=== PATIENT | male | born 1995 | race Two or more races ===

== ENCOUNTER 2016-11-30 22:42 | Emergency (ER) | payer SELFPAY ==
[2016-11-30 22:51] VITALS: BP 130/73; PULSE 64; TEMP 97.7; BMI 25.9
--- NOTE | 2016-12-01 00:32 | PDOC ---
History of Present Illness - General Chief Complaint: Penile Drainage Stated Complaint: STOMACH PAIN Time Seen by Provider: 11/30/16 23:04 History Source: Patient Exam Limitations: No Limitations - History of Present Illness Travel History: No Initial Comments: 12/01/16 01:17 21-year-old male without any medical history presents to the emergency department complaining of burning upon urination 3 weeks without fever, chills , nausea/vomiting, chest pain, shortness of breath, abdominal pains, flank pain , hematuria, urgency/frequency in urination. There are no alleviating or exacerbating factors. Patient states he is sexually active with one woman for the past 3 months. Prior to that he has been in an exclusive relationship with one woman for 3 years. No history of STDs. Timing/Duration: reports: intermittent Quality: reports: mild Past History - Past Medical History Home Medications: Ambulatory Orders NK [No Known Home Medication] 11/30/16 - Suicide/Smoking/Psychosocial Hx Smoking History: Current every day smoker Have you smoked in the past 12 months: Yes Number of Cigarettes Smoked Daily: 10 Information on smoking cessation initiated: No Hx Alcohol Use: No Drug/Substance Use Hx: No Substance Use Type: None Review of Systems - Review of Systems Able to Perform ROS?: Yes Comments:: 12/01/16 01:18 CONSTITUTIONAL: Absent: fever, chills, diaphoresis, generalized weakness, malaise, loss of appetite HEENT: Absent: rhinorrhea, nasal congestion, throat pain, throat swelling, difficulty swallowing, mouth swelling, ear pain, eye pain, visual Changes CARDIOVASCULAR: Absent: chest pain, loss of consciousness, palpitations, irregular heart rate, peripheral edema RESPIRATORY: Absent: cough, shortness of breath, dyspnea with exertion, orthopnea, wheezing, stridor, hemoptysis GASTROINTESTINAL: Absent: abdominal pain, abdominal distension, nausea, vomiting, diarrhea, constipation, melena, hematochezia GENITOURINARY: +burn upon urination Absent: dysuria, frequency, urgency, hesitancy, hematuria, flank pain, genital pain MUSCULOSKELETAL: Absent: myalgia, arthralgia, joint swelling SKIN: Absent: rash, itching, pallor HEMATOLOGIC/IMMUNOLOGIC: Absent: easy bleeding, easy bruising, lymphadenopathy, frequent infections Is the patient limited Upper Sorbian proficient: No *Physical Exam - Vital Signs Last Vital Signs Temp Pulse Resp BP Pulse Ox 97.7 F 64 16 130/73 100 11/30/16 22:44 11/30/16 22:44 11/30/16 22:44 11/30/16 22:44 11/30/16 22:44 - Physical Exam Comments: 12/01/16 01:18 GENERAL: Well developed, well nourished. Awake and alert. No acute distress. HEENT: Normocephalic, atraumatic. PERRLA, EOMI. No conjunctival pallor. Sclera are non- icteric. Moist mucous membranes. Oropharynx is clear. NECK: Supple. Full ROM. No JVD. Carotid pulses 2+ and symmetric, without bruits. No thyromegaly. No lymphadenopathy. CARDIOVASCULAR: Regular rate and rhythm. No murmurs, rubs, or gallops. Distal pulses are 2+ and symmetric. PULMONARY: No evidence of respiratory distress. Lungs clear to auscultation bilaterally. No wheezing, rales or rhonchi. ABDOMINAL: Soft. Non-tender. Non-distended. No rebound or guarding. No organomegaly. Normoactive bowel sounds. MUSCULOSKELETAL Normal range of motion at all joints. No bony deformities or tenderness. No CVA tenderness. EXTREMITIES: No cyanosis. No clubbing. No edema. No calf tenderness. SKIN: Warm and dry. Normal capillary refill. No rashes. No jaundice. *DC/Admit/Observation/Transfer Diagnosis at time of Disposition: Burning with urination, Sexually transmitted disease in male - Discharge Dispostion Admit: No - Referrals Referrals: Melissa Jacobsen MD [Staff Physician] - - Patient Instructions Printed Discharge Instructions: How to Detect and Treat STDs Additional Instructions: Abstinence Your urine has been sent out for Chlamydia/gonorrhea testing and will return in approximately 3 days You're being treated with Zithromax 1 g by mouth and Rocephin 250 mg intramuscularly while in the ER for prophylaxis of the mini and gonorrhea. Follow up with the infectious disease doctor listed on your discharge paperwork this week REturn to the ER for severe/persistent/worsening symptoms
[2016-12-01 01:00] LABS: URINE APPEARANCE SLCLOUDY; URINE BILIRUBIN NEGATIVE (NEGATIVE); URINE BLOOD 2+ (NEGATIVE); URINE COLOR LTYELLOW; URINE GLUCOSE (UA) NEGATIVE (NEGATIVE); URINE KETONE NEGATIVE (NEGATIVE); URINE NITRITE NEGATIVE (NEGATIVE); URINE UROBILINOGEN NEGATIVE mg/dL (0.2-1.0)
[2016-12-01 01:12] LABS: URINE PROTEIN 2+ (NEGATIVE)
[2016-12-01 01:14] LABS: URINE RBC 165 /hpf (0-3); URINE WBC 80 /hpf (3-5)
[2016-12-01] MEDS ORDERED: AZITHROMYCIN 1 GM PACKET PO ONE (01:26)
--- NOTE | 2016-12-01 01:26 | PDOC ---
*Physical Exam - Vital Signs Last Vital Signs Temp Pulse Resp BP Pulse Ox 97.7 F 64 16 130/73 100 11/30/16 22:44 11/30/16 22:44 11/30/16 22:44 11/30/16 22:44 11/30/16 22:44 ED Treatment Course - ADDITIONAL ORDERS Additional order review: Laboratory Results 12/01/16 00:23 Urine Color Ltyellow Urine Appearance Slcloudy Urine pH 6.0 Urine Protein 2+ H Urine Glucose (UA) Negative Urine Ketones Negative Urine Blood 2+ H Urine Nitrite Negative Urine Bilirubin Negative Urine Urobilinogen Negative Urine RBC 165 Urine WBC 80 Medical Decision Making - Medical Decision Making 12/01/16 01:25 agree with care from DANNY Bell *DC/Admit/Observation/Transfer Diagnosis at time of Disposition: Burning with urination - Referrals Referrals: Melissa Jacobsen MD [Staff Physician] - - Patient Instructions Printed Discharge Instructions: How to Detect and Treat STDs Additional Instructions: Abstinence REturn to the ER for severe/persistent/worsening symptoms - Post Discharge Activity
[2016-12-01] MEDS ORDERED: AZITHROMYCIN 250 MG TABLET ONE (01:30)
[2016-12-01] MEDS ORDERED: cefTRIAXone SODIUM 1 GM VIAL IM ONE (01:45)
[2016-12-01 10:02] LABS: URINE LEUK ESTERASE TRACE (NEGATIVE)
== END 2016-12-01 01:55 | disposition home or self-care (01) ==
LOC: JER 22:42
DX: Z20.2 Contact with and (suspected) exposure to infections with a predominantly sexual mode of transmission (principal)
CPT/HCPCS: 36415; 81003; 81015; 87086; 99282-25